=== PATIENT | female | born 1990 | race Hispanic/Latino ===

== ENCOUNTER 2018-03-23 14:32 | Outpatient (CLI) | payer OTHER | END 2018-03-23 14:33 | disposition home or self-care (01) | LOC: BICMAMMO 14:32 | PROVIDERS: ATTEND Nurse Practitioner Family | DX: N63.22 Unspecified lump in the left breast, upper inner quadrant (principal); N63.10 Unspecified lump in the right breast, unspecified quadrant; Z80.3 Family history of malignant neoplasm of breast | CPT/HCPCS: 77066; G0279 ==

== ENCOUNTER → 2018-04-04 | Day surgery (SDC) | payer OTHER | LOC: BICULT 12:44 | PROVIDERS: ATTEND Nurse Practitioner Family | PROC: 0HBU3ZX Excision of Left Breast, Percutaneous Approach, Diagnostic (ICD-10-PCS; principal; 2018-04-04) | DX: D24.2 Benign neoplasm of left breast (principal) | CPT/HCPCS: 19083; 88305 ==

== ENCOUNTER 2019-04-16 02:48 | Emergency (ER) | payer OTHER | END 2019-04-16 03:45 | disposition home or self-care (01) | LOC: SCSER 02:48 | DX: O99.511 Diseases of the respiratory system complicating pregnancy, first trimester (principal); J02.9 Acute pharyngitis, unspecified; J45.909 Unspecified asthma, uncomplicated; Z3A.08 8 weeks gestation of pregnancy | CPT/HCPCS: 87081; 87430; 99283 ==

== ENCOUNTER 2019-06-04 13:11 | Emergency (ER) | payer BC, OTHER ==
[2019-06-04 14:09] LABS: #Basophils 0.1 thou/uL (0.0-0.2); #Eosinphils 0.2 thou/uL (0.0-0.7); #Lymphocytes 2.2 thou/uL (1.20-3.40); #Monocytes 0.7 thou/uL (0.11-0.59); #Neutrophils 7.4 thou/uL (1.40-6.50); %Basophils 0.5 % (0.0-1.0); %Eosinophils 2.2 % (0.0-10.0); %Monocytes 6.2 % (0.0-10.0); %Neutrophils 70.1 % (42.0-75.0); Hemoglobin 12.4 g/dL (12.0-16.0); Mean Corpuscular HGB CONC 32.5 g/dL (32.0-36.0); Mean Corpuscular Volume 89.2 fL (78.0-98.0); Mean Platelet Volume 7.3 fL (7.4-10.4); Platelet Count 316 thou/uL (130-400); RBC Distribution Width 12.5 % (11.5-14.5); Red Blood Cell (RBC) Count 4.26 mill/uL (4.20-5.40); White Blood Cell (WBC) Count 10.6 thou/uL (4.8-10.8)
[2019-06-04 15:15] LABS: Bilirubin Negative (Negative); Blood, Urine Moderate (Negative); Clarity Cloudy (Clear); Glucose, Urine (Dipstick) Negative (Negative); Leukocyte Small (Negative); Nitrite Negative (Negative); Protein, Urine (Dipstick) Negative (Neg-Trace); Urobilinogen 0.2 mg/dL (Less than 2)
[2019-06-04 15:17] LABS: Bacteria/HPF 1+ HPF (None Seen); RBC/HPF 0-3 HPF (0-3); Renal Epithelial 0-3 HPF (None Seen); WBC/HPF 0-3 HPF (0-3)
[2019-06-04 15:18] LABS: Yeast-Budding Rare HPF (None Seen); Yeast-Hyphae Rare HPF (None Seen)
== END 2019-06-04 16:30 | disposition home or self-care (01) ==
LOC: SCSER 13:11
DX: O20.0 Threatened abortion (principal); O99.511 Diseases of the respiratory system complicating pregnancy, first trimester; J45.909 Unspecified asthma, uncomplicated; Z3A.13 13 weeks gestation of pregnancy
CPT/HCPCS: 36415; 81003; 81015; 84702; 85025; 86900; 86901; 99284; A4353

== ENCOUNTER 2019-06-08 23:08 | Emergency (ER) | payer BC ==
[2019-06-08 23:44] LABS: Bilirubin Negative (Negative); Blood, Urine Moderate (Negative); Clarity Cloudy (Clear); Glucose, Urine (Dipstick) Negative (Negative); Leukocyte Large (Negative); Nitrite Negative (Negative); Protein, Urine (Dipstick) Negative (Neg-Trace); Urobilinogen 0.2 mg/dL (Less than 2)
[2019-06-08 23:49] LABS: Bacteria/HPF 2+ HPF (None Seen)
[2019-06-09] LABS: Wet Prep Clue Cells Clue Cells Absent (None Seen); Wet Prep Spermatozoa 2nd Revie Agree with result (None Seen); Wet Prep Trichomonas Trichomonas Absent (None Seen)
[2019-06-09 00:04] LABS: Wet Prep Pathologist Review Spermatozoa Absent (None Seen)
== END 2019-06-08 23:59 | disposition home or self-care (01) ==
LOC: SCSER 23:08
DX: O23.42 Unspecified infection of urinary tract in pregnancy, second trimester (principal); O23.592 Infection of other part of genital tract in pregnancy, second trimester; B37.3 Candidiasis of vulva and vagina; O99.512 Diseases of the respiratory system complicating pregnancy, second trimester; J45.909 Unspecified asthma, uncomplicated; Z3A.14 14 weeks gestation of pregnancy
CPT/HCPCS: 81003; 81015; 87210; 87480; 87491; 87510; 87591; 87660; 99284

== ENCOUNTER 2019-07-18 14:41 | Outpatient (CLI) | payer MEDICAID ==
--- NOTE | 2019-07-18 16:24 | ULT ---
OB ULTRASOUND: 07/18/19 HISTORY: anatomy, size and dates. FINDINGS: A single live intrauterine gestation is seen with measurements corresponding to an estimated gestatio nal age of 20 weeks, 3 days and SARA at 12/02/2019. The estimated weight measures 332 grams or 1 2 oz (42 percentile by Hadlock criteria). measurements are as follows: BPD 4.79 cm 20 weeks, 4 days HC 18.17 cm 20 weeks, 5 days AC 16.06 cm 21 weeks, 2 days FL 2.82 cm 18 weeks, 5 days heart rate measures 143 beats per minute. SAUL measures 14.5 cm. Placenta is anteriorly located without evidence of placenta previa. Cervical measures 2.9 cm in length. A three vessel cord, cord insertion, kidneys, bladder, stomach, four chamber heart, lateral sam tricles, cerebellum, spine, lips/nose, upper and lower extremities are visualized. No definite anomalies are seen. IMPRESSION: Single live IUP of 20 weeks, 3 days estimated gestational age and SARA at 12/02/2019. POS: JAYCEE
== END 2019-07-18 14:42 | disposition home or self-care (01) ==
LOC: BICULT 14:41
PROVIDERS: ATTEND Family Medicine
DX: Z34.02 Encounter for supervision of normal first pregnancy, second trimester (principal); Z3A.20 20 weeks gestation of pregnancy
CPT/HCPCS: 76805

== ENCOUNTER 2019-11-07 22:17 | Inpatient (IN) | payer OTHER ==
[2019-11-07 22:57] VITALS: BMI 41.3
[2019-11-07] MEDS ORDERED: hydrALAZINE 20 MG/ML VIAL SLOW IVP PRN (23:11)
[2019-11-07] MEDS ORDERED: Lactated Ringer's 1,000 ML IV SCH (23:15)
[2019-11-07] MEDS ORDERED: Ondansetron ODT 4 MG TAB PO PRN (23:57)
[2019-11-07] MEDS ORDERED: Ondansetron PF 4 MG/2 ML Vial IVP PRN (23:57)
[2019-11-07] MEDS ORDERED: Acetaminophen 500 MG TAB PO PRN (23:57)
--- NOTE | 2019-11-08 00:15 | PDOC.LDHP ---
Labor and Delivery H&P Chief complaint: other (shortness of breath, fever, cough) HPI: 29 y/o G1 at 36w2d, patient of Dr. Stinson, presents with new onset shortness of breath, fever of 100.4 at home, chills, and cough. She reports she has not felt well all day and at around 7pm, started developing chills and shortness of breath and took her temperature. She noticed she had not felt the baby move this evening as well and decided to come be evaluated. Denies VB, LOF, ctx, or other concerns. She has a history of asthma, but usually only rarely requires her albuterol inhaler (last used 2 days ago). ROS neg for HEENT, CV, pulm, GI, , neuro, psych, skin, musculoskeletal, or constitutional symptoms other than mentioned above. OB History Details: First Current complications: none Past Medical History: Asthma - last used albuterol inhaler 2 days ago but rarely needs it. Depression, anxiety - no meds Current medications: pre- vitamins Previous surgical history: other (breast biopsy) Allergies/Adverse Reactions: Allergies Allergy/AdvReac Type Severity Reaction Status Date / Time No Known Allergies Allergy Verified 11/07/19 22:47 Social history: none - Physical Exam Abnormal vital signs: RR 26, mild tachycardia General: other (Short of breath when talking) Heart: other (regular rhythm, tachycardic) Lungs: CTAB Abdomen: gravid Extremeties: no edema FHT: category 2 (160s, mod variability, + accels, occasional variable decel) [place] contractions every: rare - Assessment 29 y/o G1 at 36w2d with new onset SOB, cough, fever and chills - suspect COVID- 19 vs influenza. - Plan -: 1. Admit to L&D 2. CBC, CMP, ferritin, ABG, CXR ordered and pending 3. Continuous monitoring for now 4. IV fluid resuscitation. 5. Discussed with Dr. Stinson - would like to get Sound consult for medical management. Consult placed. 6. COVID-19, influenza swabs collected and pending. 7. COVID-19 precautions.
[2019-11-08 00:28] LABS: Hemoglobin 11.1 g/dL (12.0-16.0); Mean Corpuscular HGB CONC 33.1 g/dL (32.0-36.0); Mean Corpuscular Hemoglobin 28.9 pg (27.0-31.0); Mean Corpuscular Volume 87.4 fL (78.0-98.0); Platelet Count 211 thou/uL (130-400); RBC Distribution Width 12.8 % (11.5-14.5); Red Blood Cell (RBC) Count 3.84 mill/uL (4.20-5.40); White Blood Cell (WBC) Count 10.5 thou/uL (4.8-10.8)
[2019-11-08 00:42] LABS: Band 11 % (5-11); Lymphocytes 4 % (21-51); MDiff Complete? YES; Monocytes 7 % (0-10); Neutrophil 78 % (42-75)
[2019-11-08 00:43] LABS: ALT (SGPT) 56 U/L (8-55); AST (SGOT) 45 U/L (5-34); Albumin 3.2 g/dL (3.5-5.0); Alkaline Phosphatase 213 U/L (40-110); Anion Gap 14 mmol/L (10-20); BUN (Urea Nitrogen) 10 mg/dL (7.0-18.7); Bilirubin, Total 0.3 mg/dL (0.2-1.2); Calc. Creatinine Clearance 206 mL/min (70-130); Calcium 8.2 mg/dL (7.8-10.44); Carbon Dioxide 18 mmol/L (22-29); Chloride 107 mmol/L (98-107); Estimated GFR-MDRD Greater than 90; Globulin 2.8 g/dL (2.4-3.5); Glucose 111 mg/dL (70-105); Potassium 3.7 mmol/L (3.5-5.1); Sodium 135 mmol/L (136-145)
[2019-11-08] MEDS: Lactated Ringer's 1,000 ML IV SCH ×2 (00:43→12:50)
[2019-11-08 01:20] LABS: PTT 29.4 SEC (22.9-36.1)
[2019-11-08 01:21] LABS: D-Dimer Test 2.03 *mcg/mL (0.27-0.43)
[2019-11-08 01:30] LABS: INR-International Normal Ratio 0.9
[2019-11-08 01:42] LABS: Lactic Acid 1.5 mmol/L (0.5-2.2)
[2019-11-08 01:47] LABS: CRP (Inflammatory) 5.08 mg/dL (= or < 0.5)
[2019-11-08] MEDS ORDERED: Azithromycin 500 MG in Sodium Chloride 0.9% 250 ML 250 ML IVPB SCH (02:15)
[2019-11-08] MEDS ORDERED: cefTRIAXone\\ROCEPHIN 1 GM in Sodium Chloride 0.9% 100 ML IVPB SCH ×2 (03:00→06:00)
[2019-11-08 03:32] LABS: Actual Bicarbonate (HCO3a) 17.7 mEq/L (22-28); CO2 Tension 26.5 mmHg (35.0-45.0); Carboxyhemoglobin (COHb) 0.3 gm% (0.0-3.0); Hemoglobin (Hb) 12.3 g/dL (12.0-16.0); pH, Arterial 7.44 (7.35-7.45)
[2019-11-08 03:33] LABS: ALV-art Gradient 16.605 (0-20); Calcium, Ionized 1.11 mmol/L (1.12-1.30); Potassium - ABG Lab 3.52 mmol/L (3.70-5.30); Puncture Site RRADIAL
[2019-11-08 04:47] LABS: Strep pneumo Urine Ag NEGATIVE (NEGATIVE)
[2019-11-08 04:48] LABS: Legionella Urinary Ag Negative (Negative)
[2019-11-08] MEDS ORDERED: cefTRIAXone Sodium 1,000 MG in Syringe 0 ML IVPB SCH (06:00)
--- NOTE | 2019-11-08 08:01 | CON ---
DATE OF CONSULTATION: 11/08/2019 REASON FOR CONSULTATION: Medical management. HISTORY OF PRESENT ILLNESS: The patient is a 29-year-old, G1, P0, at 36.2 weeks gestation, who initially presented to the labor and delivery unit for decreased movement with associated fever, chills, body aches, cough, and shortness of breath, all of which began at approximately 1900 hours yesterday. The patient reported that she was in her usual state of health and felt well until the evening of 11/07/2019, at which time she had sudden onset of fever and chills, and diffuse body aches. She reportedly checked her temperature and it was 100.4 degrees Fahrenheit taken orally at home and endorsed associated cough with shortness of breath as well. She also at that time noted decreased movement and tried to lie down and relax to monitor kick counts, but continued to feel progressively worse prompting her coming to labor and delivery unit for further evaluation. On arrival to the L and D unit, the patient was reportedly noticeably tachypneic and coughing and was placed in the negative pressure room on the labor and delivery unit due to high suspicion for possible COVID-19 infection. Upon questioning on exam , the patient reported feeling slightly improved since her arrival to L and D, but did endorse persistent subjective fever and slight headache. She denied any recent sick contacts or travel outside the country. States she has not been working since September to isolate herself and lives at home with her . She also denied any vomiting, diarrhea, chest pain, sore throat, or nasal congestion. She did endorse some transient nausea 2 nights ago, but denied any on exam. PAST MEDICAL HISTORY: GERD, asthma. PAST SURGICAL HISTORY: Breast biopsy. SOCIAL HISTORY: Lives at home with . Denies any tobacco, alcohol, or drug use. CURRENT MEDICATIONS: 1. vitamins. 2. Iron. 3. Albuterol as needed. ALLERGIES: NONE. FAMILY HISTORY: Mother and father with diabetes mellitus type 2 and father also with congestive heart failure. REVIEW OF SYMPTOMS: GENERAL: Endorses fevers, chills, and fatigue. HEENT: Denies congestion or sore throat. RESPIRATORY: Denies shortness of breath and endorses cough. CARDIOVASCULAR: Denies chest pain or palpitations. GASTROINTESTINAL: Denies nausea, vomiting, or diarrhea. SKIN: Denies rash or itching. MUSCULOSKELETAL: Reports myalgias but denies swelling. NEUROLOGICAL: Endorses headache and denies focal weakness. : Denies dysuria or hematuria. 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 PHYSICAL EXAMINATION: VITAL SIGNS: Blood pressure 106/55, heart rate 96, respiratory rate 20, O2 saturation 97% on room air, T-max 100.9 Fahrenheit, weight 105 kg. CONSTITUTIONAL: No apparent distress, awake, alert, and oriented, well developed , but ill appearing. HEENT: Normocephalic and atraumatic, extraocular movement intact, grossly normal vision and grossly normal hearing with moist mucous membranes and good dentition. NECK: Supple with full range of motion. HEART: Regular rate and rhythm. Normal S1, S2. No murmurs, rubs, or gallops. LUNGS: Clear to auscultation bilaterally with good air movement. No retractions or wheezing. Slight dyspnea on answering questions, but able to speak in full sentences. ABDOMEN: Gravid, nontender. Bowel sounds present. MUSCULOSKELETAL: Full range of motion throughout. NEUROLOGICAL: No focal deficits. Cranial nerves grossly intact. SKIN: No rash or lesions noted. HEME/LYMPHATIC: No purpura or petechiae noted. PSYCHIATRIC: Normal mood and affect with intact recent and remote memory. LABORATORY DATA: White blood cell count 10.5, hemoglobin 11.1, hematocrit 33.5, platelets 211, neutrophils 78, bands 11, lymphocytes 4, monocytes 7. PT 12, INR 0.9, aPTT 29.4, D-dimer 2.03. Sodium 135, potassium 3.7, chloride 107, carbon dioxide 18, BUN 10, creatinine 0.68, glucose 111. Lactic acid 1.5. AST, ALT, and alkaline phosphatase 45, 56 and 213. LDH 193. CK 38, CRP 5.08. ABG pending. IMAGING: Chest x-ray, official read pending, but on personal review multifocal non peripheral airspace opacities with some areas of bronchial wall thickening noted. ASSESSMENT: A 29-year-old, G1, P0, at 36.2 weeks gestational age who presented to L and D with sudden onset cough, shortness of breath, fever and chills & decreased movement. PLAN: 1. Pulmonary infection: Etiology uncertain at this point, but DDX includes possible COVID-19 infection versus influenza versus another viral respiratory pathogen versus atypical community-acquired pneumonia. COVID and RVP swabs pending. Will proceed with empiric coverage for community-acquired pneumonia with Rocephin and azithromycin q.24 hours. We will also obtain urinary antigens for Streptococcus and Legionella. Continue Tylenol p.r.n. for fever and myalgias. Saturating well on room air and vitals much improved after a bolus of IV fluids. We will continue on maintenance IV fluids with LR at 125 mL an hour & initiate supplemental oxygen PRN to maintain sats >92%. We will continue to trend laboratories and continue droplet precautions pending COVID and flu swabs. 2. Asthma: The patient has home albuterol inhaler with her to use as needed while inpatient to avoid nebulizing medications due to COVID PUI status. 3. Single IUP at 36.2 weeks gestational age: OB hospitalist and the patient's PCP on board for antepartum management. FHTs reassuring so far this hospital stay. Will continue continuous monitoring per the primary team. Job ID: [id number] [facility]ALTH[facility]
--- NOTE | 2019-11-08 09:40 | RAD ---
SINGLE VIEW OF THE CHEST: COMPARISON: None. HISTORY: Shortness of breath with cough. Possible COVID-19. FINDINGS: Single view of the chest shows a normal sized cardiomediastinal silhouette. There is no evidence of c onsolidation, mass, or pleural effusion. The bones are unremarkable. IMPRESSION: No evidence of acute cardiopulmonary disease. POS: EAA
--- NOTE | 2019-11-08 10:02 | PDOC.BPN ---
- Brief Progress Note Attending addendum to consultation. Patient feels well currently. Had symptoms as listed in note. 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 On exam NAD RRR s M CTAB s w/r/r No obvious skin changes CXR: slightly underpenetrated film, no interstitial infiltrate or consolidation A/P: Febrile illness with negative RVP and pending COVID test in setting of cough, headache, myalgias. 1. From a respiratory/medical standpoint may be d/c'd home. 2. I would hold any antimicrobials as no bacterial pneumonia apparent and not being admitted for COVID. 3. Quarantine at home 4. Has follow up established with Dr. Stinson 5. Return precautions discussed and she voices understanding. 6. Low suspicion for pyelo, workup per primary service.
[2019-11-08 10:36] LABS: Bilirubin Negative (Negative); Blood, Urine Negative (Negative); Clarity Clear (Clear); Glucose, Urine (Dipstick) Normal (Negative); Leukocyte 500 Leu/uL (Negative); Nitrite Negative (Negative); Protein, Urine (Dipstick) Negative (Neg-Trace); RBC/HPF 0-3 HPF (0-3); Squamous Epithelial None Seen HPF (0-3); Urobilinogen Normal mg/dL (Less than 2)
[2019-11-08 10:47] LABS: Bacteria/HPF 4+ HPF (None Seen)
[2019-11-08 10:48] LABS: Urine Culture Reflex Yes Yes
--- NOTE | 2019-11-08 11:25 | PRG ---
DATE OF SERVICE: 11/08/2019 TIME OF SERVICE: 1100 hours. The patient remains stable. COVID-19 testing is pending. Urine that was collected last night as a catch was run, which revealed 500+ leukocyte esterase, 7 to 10 wbc's, 4+ bacteria and a culture was reflexed off it. As the nitrites were negative and the urine was otherwise unremarkable, I suspect this is just contamination from leukorrhea of . We will repeat urinalysis with straight catheterization and reassess. The patient did receive Rocephin and Zithromax upon presentation, which should be adequate treatment for at least the first 24 hours if this is early pyelonephritis. Again, COVID-19 testing pending. If the patient is COVID-19 positive and no evidence of UTI, we will anticipate discharge home with outpatient followup. Job ID: [id number]
[2019-11-08] MEDS ORDERED: cefTRIAXone\\ROCEPHIN 2 GM in Sodium Chloride 0.9% 100 ML IVPB SCH (12:00)
[2019-11-08 12:09] LABS: SARS-CoV-2 MS2 Positive; SARS-CoV-2 N Gene Negative; SARS-CoV-2 S Gene Negative; SARS-CoV-2 orf1ab Negative
--- NOTE | 2019-11-08 13:37 | PDOC.EVN ---
Event Note - Event Note Event Note: PCR negative Covid 19. Dr Stinson assuming patient care as of 08 on 11/07. pt stable at this time .
== END 2019-11-08 14:38 | disposition home or self-care (01) | DRG 833 ==
LOC: L&D/OP 22:17 → L&D 23:57
PROVIDERS: ADMIT Obstetrics & Gynecology; ATTEND Obstetrics & Gynecology
PROC: 8E0ZXY6 Isolation (ICD-10-PCS; principal; 2019-11-07)
DX: O99.513 Diseases of the respiratory system complicating pregnancy, third trimester (principal); Z20.828 Contact with and (suspected) exposure to other viral communicable diseases; Z3A.36 36 weeks gestation of pregnancy; J45.909 Unspecified asthma, uncomplicated; O36.8330 Maternal care for abnormalities of the fetal heart rate or rhythm, third trimester, not applicable or unspecified; R06.02 Shortness of breath; R50.9 Fever, unspecified; K21.9 Gastro-esophageal reflux disease without esophagitis; O26.893 Other specified pregnancy related conditions, third trimester; O99.613 Diseases of the digestive system complicating pregnancy, third trimester; Z79.899 Other long term (current) drug therapy
CPT/HCPCS: 36415; 51701; 71045; 80053; 81001; 82550; 82728; 82805; 83605; 83615; 84145; 85007; 85027; 85379; 85610; 85730; 86140; 87077; 87086; 87186; 87449; 87633; 87635; 87899; 99285; J0456; J0696; J2405; J3490; J7050; U0002

== ENCOUNTER 2019-11-15 02:52 | Inpatient (IN) | payer OTHER ==
[2019-11-15 03:27] VITALS: BMI 43.2
[2019-11-15 03:56] LABS: Amnisure Test RUPTURE DETECTED (No Rupture)
[2019-11-15 03:57] LABS: Amnisure Internal Control QC ACCEPTABLE (ACCEPTABLE)
[2019-11-15] MEDS ORDERED: Lidocaine 1% (PF) 30 ML VIAL SC PRN (04:35)
[2019-11-15] MEDS ORDERED: Ibuprofen 800 MG TAB PO PRN (04:35)
[2019-11-15] MEDS ORDERED: HYDROcodone/Acetaminophen 5/325 mg Tablet PO PRN (04:35)
[2019-11-15] MEDS ORDERED: Ondansetron PF 4 MG/2 ML Vial IVP PRN (04:35)
[2019-11-15] MEDS ORDERED: NS / Oxytocin 40 units/1000ml 1,000 ML IV PRN (04:35)
[2019-11-15] MEDS ORDERED: hydrALAZINE 20 MG/ML VIAL SLOW IVP PRN (04:35)
[2019-11-15] MEDS ORDERED: Butorphanol Tartrate 1 MG/ML VIAL SLOW IVP PRN (04:35)
[2019-11-15] MEDS ORDERED: Lactated Ringer's 1,000 ML IV SCH (04:45)
[2019-11-15] MEDS: Lactated Ringer's 1,000 ML IV SCH ×2 (05:17→22:03)
[2019-11-15 05:25] LABS: Hemoglobin 11.5 g/dL (12.0-16.0); Mean Corpuscular HGB CONC 32.6 g/dL (32.0-36.0); Mean Corpuscular Hemoglobin 28.5 pg (27.0-31.0); Mean Corpuscular Volume 87.4 fL (78.0-98.0); Mean Platelet Volume 8.8 fL (7.4-10.4); Platelet Count 272 thou/uL (130-400); RBC Distribution Width 13.2 % (11.5-14.5); Red Blood Cell (RBC) Count 4.05 mill/uL (4.20-5.40); White Blood Cell (WBC) Count 7.7 thou/uL (4.8-10.8)
[2019-11-15 06:06] LABS: Syphilis Antibody Nonreactive (Nonreactive); Syphilis Antibody Index 0.05 S/CO (<1.00 Non-Reactive)
[2019-11-15 06:07] LABS: HBSAg Index 0.17 S/CO (0-0.99); Hep B Surf Ag Non-Reactive S/CO (NonReactive)
[2019-11-15] MEDS ORDERED: NS w/ Oxytocin 10 units 500 ML ONE (06:53)
[2019-11-15] MEDS ORDERED: NS w/ Oxytocin 10 units 500 ML IV SCH (07:30)
[2019-11-15] MEDS ORDERED: Magnesium Sulfate 20 gm/500 ml 20 GM/500 ML BAG ONE ×2 (07:53→16:06)
[2019-11-15] MEDS: Misoprostol 100 MCG TAB PO SCH ×4 (08:50→17:54)
[2019-11-15] MEDS ORDERED: Misoprostol 100 MCG TAB VAG SCH ×2 (18:00)
[2019-11-16] MEDS ORDERED: Magnesium Sulfate 20 gm/500 ml 20 GM/500 ML BAG ONE ×2 (02:21→11:53)
[2019-11-16] MEDS: Misoprostol 100 MCG TAB VAG SCH ×2 (05:59→08:48)
[2019-11-16] MEDS: Lactated Ringer's 1,000 ML IV SCH ×3 (08:39→11:48)
[2019-11-16] MEDS: NS w/ Oxytocin 10 units 500 ML IV SCH (08:40)
[2019-11-16] MEDS ORDERED: Magnesium Sulfate 20 gm/500 ml 20 GM/500 ML BAG IVPB PRN (09:15)
[2019-11-16] MEDS ORDERED: Calcium Gluc 4.6 MEQ/10 ML (100 MG/ML) IV PRN (09:15)
[2019-11-16] MEDS ORDERED: Magnesium Sulfate 20 gm/500 ml 4 GM/100 ML BAG IVPB ONE (09:15)
[2019-11-16] MEDS ORDERED: Ketorolac Tromethamine 30 MG/ML VIAL ONE (11:54)
[2019-11-16] MEDS ORDERED: Dexamethasone 20 MG/5 ML VIAL ONE (11:54)
[2019-11-16] MEDS ORDERED: Ondansetron PF 4 MG/2 ML Vial ONE (11:54)
[2019-11-16] MEDS ORDERED: diphenhydrAMINE 50 MG/ML VIAL ONE (11:54)
[2019-11-16] MEDS ORDERED: Metoclopramide HCl 10 MG/2 ML VIAL ONE (11:54)
[2019-11-16] MEDS ORDERED: Bicitra 30 ML UDCUP ONE (12:06)
[2019-11-16] MEDS ORDERED: Famotidine/PF 20 mg/2ml Vial ONE (12:18)
[2019-11-16] MEDS ORDERED: Oxytocin 10 UNITS/ML VIAL ONE (12:21)
[2019-11-16] MEDS ORDERED: MORPHINE 5 MG/10 ML PF VIAL ONE (12:21)
[2019-11-16] MEDS ORDERED: Naloxone HCl 0.4 mg/ml Vial IV PRN (13:09)
[2019-11-16] MEDS ORDERED: Ondansetron PF 4 MG/2 ML Vial IVP PRN ×2 (13:09→18:34)
[2019-11-16] MEDS ORDERED: L&D-Morphine 4 MG/ML VIAL SLOW IVP PRN (13:09)
[2019-11-16] MEDS ORDERED: Promethazine HCl 25 MG/ML VIAL IM PRN ×2 (13:09→18:34)
[2019-11-16] MEDS ORDERED: Meperidine HCl/PF 25 MG/ML VIAL SLOW IVP PRN (13:09)
[2019-11-16] MEDS ORDERED: diphenhydrAMINE 50 MG/ML VIAL IVP PRN (13:09)
[2019-11-16] MEDS ORDERED: Promethazine HCl 25 MG SUPP PR PRN (13:09)
[2019-11-16] MEDS ORDERED: Ondansetron HCl/PF 4 MG/2 ML Vial IVP PRN (13:09)
[2019-11-16] MEDS ORDERED: Naloxone HCl 0.4 mg/ml Vial IVP PRN ×2 (13:09)
[2019-11-16] MEDS ORDERED: HYDROmorphone 2 MG/ML VIAL SLOW IVP PRN (13:09)
[2019-11-16] MEDS ORDERED: Communication Order-Pharmacy FS SCH (13:15)
[2019-11-16] MEDS ORDERED: Misoprostol 100 MCG TAB VAG SCH (14:00)
[2019-11-16] MEDS ORDERED: Adacel (T-DAP) 0.5 ML SYRINGE IM ONE (18:34)
[2019-11-16] MEDS ORDERED: Calcium Gluconate 4.6 MEQ in Sodium Chloride 0.9% 100 ML IVPB PRN (18:34)
[2019-11-16] MEDS ORDERED: Lanolin Ointment 7 GM TUBE TOP PRN (18:34)
[2019-11-16] MEDS ORDERED: Bisacodyl 10 MG SUPP PR PRN (18:34)
[2019-11-16] MEDS ORDERED: hydrALAZINE 20 MG/ML VIAL SLOW IVP PRN (18:34)
[2019-11-16] MEDS ORDERED: diphenhydrAMINE 25 MG CAP PO PRN (18:34)
[2019-11-16] MEDS ORDERED: Ketorolac Tromethamine 30 MG/ML VIAL IVP PRN (19:00)
[2019-11-16] MEDS: Ketorolac Tromethamine 30 MG/ML VIAL IVP SCH (20:02)
[2019-11-16] MEDS: Docusate Calcium (SURFAK) 240 MG CAP PO SCH (21:48)
[2019-11-16] MEDS: Misoprostol 100 MCG TAB PO SCH (21:52)
[2019-11-16] MEDS: Ibuprofen 800 MG TAB PO SCH (22:00)
[2019-11-16] MEDS: Magnesium Sulfate 20 gm/500 ml 20 GM/500 ML BAG IVPB SCH (22:24)
[2019-11-17] MEDS: Lactated Ringer's 1,000 ML IV SCH (01:07)
[2019-11-17] MEDS ORDERED: HYDROcodone/Acetaminophen 5/325 mg Tablet PO PRN (01:11)
[2019-11-17] MEDS ORDERED: Meperidine HCl/PF 25 MG/ML VIAL IM PRN (01:15)
[2019-11-17] MEDS ORDERED: Butorphanol Tartrate 1 MG/ML VIAL SLOW IVP PRN (01:15)
[2019-11-17] MEDS: Ketorolac Tromethamine 30 MG/ML VIAL IVP SCH ×2 (01:27→16:11)
[2019-11-17 05:47] LABS: Hemoglobin 10.4 g/dL (12.0-16.0); Mean Corpuscular HGB CONC 32.6 g/dL (32.0-36.0); Mean Corpuscular Hemoglobin 28.8 pg (27.0-31.0); Mean Corpuscular Volume 88.1 fL (78.0-98.0); Mean Platelet Volume 8.7 fL (7.4-10.4); Platelet Count 279 thou/uL (130-400); RBC Distribution Width 13.6 % (11.5-14.5); Red Blood Cell (RBC) Count 3.63 mill/uL (4.20-5.40)
[2019-11-17] MEDS: Ibuprofen 800 MG TAB PO SCH ×3 (06:44→21:08)
[2019-11-17] MEDS: Magnesium Sulfate 20 gm/500 ml 20 GM/500 ML BAG IVPB SCH (08:40)
[2019-11-17] MEDS: Docusate Calcium (SURFAK) 240 MG CAP PO SCH ×2 (08:40→21:08)
[2019-11-17] MEDS: Prenatal Vitamin 1 TAB PO SCH (08:40)
[2019-11-17] MEDS: HYDROcodone/Acetaminophen 5/325 mg Tablet PO PRN ×2 (09:54→15:30)
[2019-11-17] MEDS: HYDROcodone/Acetaminophen 7.5/325 mg Tablet PO PRN ×2 (19:30→23:34)
[2019-11-17] MEDS: Simethicone Chewable 80 MG TAB PO PRN ×2 (19:31→23:33)
[2019-11-18] MEDS: HYDROcodone/Acetaminophen 7.5/325 mg Tablet PO PRN ×5 (03:34→21:28)
[2019-11-18] MEDS: Simethicone Chewable 80 MG TAB PO PRN ×4 (03:34→21:25)
[2019-11-18] MEDS: Ibuprofen 800 MG TAB PO SCH ×3 (05:19→21:25)
[2019-11-18] MEDS: Docusate Calcium (SURFAK) 240 MG CAP PO SCH ×2 (07:48→21:25)
[2019-11-18] MEDS: Prenatal Vitamin 1 TAB PO SCH (07:48)
--- NOTE | 2019-11-18 08:44 | OP ---
DATE OF PROCEDURE: 11/16/2019 RESIDENT: Camila Wells MD PGY-2. ATTENDING: Dr Kannan Stinson PROCEDURE PERFORMED: Primary low-transverse . PREOPERATIVE DIAGNOSES: 1. Early term intrauterine , 37.5 weeks 2. Prelabor rupture of membranes. 3. Prolonged rupture of membranes. 4. Preeclampsia, on magnesium. 5. Failed induction of labor POSTOPERATIVE DIAGNOSES: 1. Early term intrauterine , delivered. 2. Prelabor rupture of membranes. 3. Prolonged rupture of membranes. 4. Preeclampsia, on magnesium. 5. Failed induction of labor ANESTHESIA: Spinal. INDICATIONS: The patient is a 29-year-old, G1, P0, female at 37.5 weeks gestation who presented with PROM. Blood pressures were severe range and she was started on magnesium. She was given Cytotec x 7 doses over ~36 hours but was unable to progress past 1 cm. DESCRIPTION OF PROCEDURE: After risks, benefits, and alternatives were explained to the patient, she gave informed consent. Preoperative antibiotics included cefazolin 2 g IV and azithromycin 500 mg. The patient was taken to the operating room and spinal anesthesia was initiated. She was placed in the supine position with a leftward tilt and prepped and draped in the usual sterile fashion. A Pfannenstiel incision was made with a scalpel and carried down to the level of the fascia, which was sharply nicked. The fascia cut was extended bilaterally with Marsh scissors. The inferior and superior edges of the cut fascial edges were elevated with Gasper clamps and underlying rectus muscles were sharply and bluntly dissected free. The recti were divided digitally and retracted manually. The peritoneum was entered sharply with the Chancellor and retracted manually. Bladder blade was placed. A low-transverse score was made with a scalpel. The uterus was entered in the midline with the scalpel. Clear fluid was seen. The hysterotomy was extended manually. The was noted to be vertex, easily delivered with fundal pressure. Mouth and nares were bulb suctioned. Cord was clamped and cut, and grossly normal. Male infant was handed to the waiting nurse. Cord blood was obtained. Placenta was expectantly extracted and found to be intact with 3-vessel cord and discarded. The uterus was externalized, and endometrium was curetted with a dry lap. The bladder blade was replaced. The uterus was closed with 1 Monocryl x2. There were 2 areas where a [id number] stitch was placed with resulting hemostasis. Following this, abdomen was irrigated with saline and suctioned free of clot. Seprafilm was applied. The uterus was internalized and the hysterotomy was again noted to be hemostatic. The peritoneum was closed with 3-0 Vicryl. The fascia was closed with running nonlocking 0 PDS suture x2. The subcutaneous tissue was irrigated and there were no bleeders. The subcutaneous tissue was closed with 3-0 Vicryl. The skin was approximated with arash, and a pressure dressing was placed. All counts were correct. The patient tolerated the procedure well, was taken to recovery room in stable condition. QUANTITATIVE BLOOD LOSS: 702 mL. COMPLICATIONS: None. SPECIMEN: Cord blood sent to lab for blood type. FINDINGS: 1. Grossly normal male with Apgars of 6 and 9. 2. Grossly normal placenta with 3-vessel cord discarded. DRAINS: Lou to gravity, draining clear urine. Job ID: [id number] MTDD
[2019-11-19] MEDS: Simethicone Chewable 80 MG TAB PO PRN ×2 (01:32→08:51)
[2019-11-19] MEDS: HYDROcodone/Acetaminophen 7.5/325 mg Tablet PO PRN ×5 (01:32→17:28)
[2019-11-19] MEDS: Ibuprofen 800 MG TAB PO SCH ×2 (05:36→13:57)
[2019-11-19 08:18] VITALS: TEMP 99.2
[2019-11-19] MEDS: Prenatal Vitamin 1 TAB PO SCH (08:51)
[2019-11-19] MEDS: Docusate Calcium (SURFAK) 240 MG CAP PO SCH (08:52)
[2019-11-19] MEDS ORDERED: Lisinopril 10 MG TAB PO SCH (09:00)
[2019-11-19 11:46] VITALS: BP 108/53
[2019-11-19] MEDS ORDERED: Measles/Mumps/Rubella 10 MCG/0.5 ML VIAL SC ONE (15:00)
== END 2019-11-19 18:09 | disposition home or self-care (01) | DRG 788 ==
LOC: L&D/OP 02:52 → L&D 04:35 → 3SW 11-17 15:49
PROVIDERS: ADMIT Obstetrics & Gynecology; ATTEND Family Medicine
PROC: 3E0P7VZ Introduction of Hormone into Female Reproductive, Via Natural or Artificial Opening (ICD-10-PCS; 2019-11-15)
PROC: 10D00Z1 Extraction of Products of Conception, Low, Open Approach (ICD-10-PCS; principal; 2019-11-16)
PROC: 3E0P05Z Introduction of Adhesion Barrier into Female Reproductive, Open Approach (ICD-10-PCS; 2019-11-16)
PROC: 3E0234Z Introduction of Serum, Toxoid and Vaccine into Muscle, Percutaneous Approach (ICD-10-PCS; 2019-11-16)
DX: O42.92 Full-term premature rupture of membranes, unspecified as to length of time between rupture and onset of labor (principal); O14.94 Unspecified pre-eclampsia, complicating childbirth; Z3A.37 37 weeks gestation of pregnancy; Z37.0 Single live birth; Z23 Encounter for immunization; O61.9 Failed induction of labor, unspecified
CPT/HCPCS: 36415; 36416; 83735; 84112; 85027; 86780; 86850; 86900; 86901; 87340; 90707; 90715; J0360; J0595; J0690; J1100; J1200; J1885; J2274; J2405; J2590; J2765; J3475; S0028